=== PATIENT | female | born 1955 | race Caucasian/White ===

== ENCOUNTER 2016-09-08 17:51 | Day surgery (SDC) | payer BC ==
[~2016-09-08] VITALS: Ht 177.8 cm; Wt 92.0 kg
--- NOTE | 2016-09-08 17:55 | NUR ---
ADMISSION PATIENT ADMITTED TO ROOM 124 AT THIS TIME. PATIENT AMBULATORY. FAMILY AT BEDSIDE. A/OX3. PT DOES NOT APPEAR TO BE IN ACUTE DISTRESS. WILL CONTINUE TO MONITOR.
[2016-09-08] MEDS ORDERED: ONDANSETRON 4mg/2ml INJECTION IV PRN (18:15)
[2016-09-08] MEDS ORDERED: NITROGLYCERIN 0.4 MG SUBLINGUAL TABLET SL PRN (18:15)
[2016-09-08 18:22] VITALS: Ht 177.8 cm; Wt 92.0 kg
[2016-09-08 18:28] VITALS: BP 125/86; PULSE 67; RESP 18; TEMP 98; O2SAT 97
[2016-09-08] MEDS ORDERED: ASPI-914 PO (18:30)
[2016-09-08 18:39] LABS: BASOPHILS % (AUTO) 0.3 % (0-2); EOSINOPHILS # (AUTO) 0.1 T/MM3 (0-0.5); EOSINOPHILS % (AUTO) 1.2 % (0-4); HCT - HEMATOCRIT 41.8 % (36-46); HGB - HEMOGLOBIN 13.6 GM/DL (12-16); IMMATURE GRANULOCYTE # (AUTO) 0.01 T/MM3 (0.00-0.03); IMMATURE GRANULOCYTE % (AUTO) 0.1 % (0.0-0.5); LYMPHOCYTES # (AUTO) 2.4 T/MM3 (1-4.8); LYMPHOCYTES % (AUTO) 31.8 % (23-45); MEAN CORPUSCULAR HGB 29.8 UUG (26-34); MEAN CORPUSCULAR HGB CONC(MCHC 32.5 GM/DL (31-37); MEAN CORPUSCULAR VOLUME 91.7 UM3 (80-100); MEAN PLATELET VOLUME 11.1 UM3 (9.4-12.4); MONOCYTES # (AUTO) 0.5 T/MM3 (0-0.8); MONOCYTES % (AUTO) 6.9 % (0-9.0); NEUTROPHILS #(AUTO)-ABSOLUTE 4.5 T/MM3 (1.8-7.7); NEUTROPHILS % (AUTO) 59.7 % (33-66); RED BLOOD COUNT 4.56 M/MM3 (4.00-5.20); WBC - WHITE BLOOD COUNT 7.5 T/MM3 (4.5-11.0)
[2016-09-08 18:44] LABS: ALBUMIN 4.1 G/DL (3.5-5.0); ALBUMIN/GLOBULIN RATIO 1.3 RATIO (1.1-2.2); ALKALINE PHOSPHATASE 71 U/L (38-126); ALT (SGPT) 44 U/L (9-52); ANION GAP 13 MEQ/L (5-15); AST (SGOT) 21 U/L (14-36); BUN/CREATININE RATIO 21 RATIO (6-26); CALCIUM 9.5 MG/DL (8.4-10.2); CHLORIDE 108 MEQ/L (98-107); CO2 - CARBON DIOXIDE 25 MEQ/L (22-30); CREATININE 0.7 MG/DL (0.7-1.2); GLOMERULAR FILTRATION RATE 85; GLUCOSE 97 MG/DL (65-110); MAGNESIUM 2.1 MG/DL (1.6-2.3); SODIUM 146 MEQ/L (134-144); TOTAL PROTEIN 7.2 G/DL (6.3-8.2)
--- NOTE | 2016-09-08 23:26 | NUR ---
Chart Check 24 hour chart check completed
[2016-09-09] VITALS (12 sets, daily range): BP systolic 94–123; BP diastolic 52–70; PULSE 55–71; RESP 10–20; TEMP 97.8–98.4; O2SAT 93–99
[2016-09-09] MEDS: ACETAMINOPHEN 500 MG TABLET PO PRN ×2 (00:04→07:03)
--- NOTE | 2016-09-09 00:04 | NUR ---
tylenol pt denies pain at this time, but requesting tylenol prn for sleep. pt given tylenol 500mg - 2 tabs po per pt request. will continue to monitor.
--- NOTE | 2016-09-09 06:45 | NUR ---
SHIFT SUMMARY PT HAS SLEPT SOUNDLY THROUGHOUT THE NIGHT. DENIES CP/N/V/SOA. PT ANXIOUS LAST NIGHT ABOUT LAB DRAWS AFTER SEVERAL IV ATTEMPTS LAST NIGHT, BUT AGREED TO LET LAB DRAW BLOOD TO CHECK TROPONIN LEVELS. TROPONINS NEGATIVE. VSS, ON RA. IVL IN LEFT AC, FLUSHES WELL. PT TO HAVE HEART CATH PROCEDURE TODAY. PT GIVEN PRN TYLENOL LAST NIGHT, SEE PREVIOUS NOTE. PT UP AD MATTHEW IN ROOM, ADEQUATE OUTPUT. BED LOCKED AND LOW, CALL LIGHT WITHIN REACH. WILL CONTINUE TO MONITOR.
[2016-09-09] MEDS ORDERED: ASPIRIN *EC* 81mg TABLET PO SCH (09:00)
[2016-09-09] MEDS ORDERED: NORMAL SALINE 1,000 ML IV SCH (09:15)
--- NOTE | 2016-09-09 10:20 | NUR ---
CM CM VISITED PT AND FAMILY. CM EXPLAINED ROLE AND PROVIDED CONTACT INFORMATION. PT [place]N TO RETURN [place] [facility] [place] IS AWARE TO CONTACT CM IF NEEDS ARISE.
[2016-09-09] MEDS ORDERED: NITROGLYCERIN 50mg/10ml INJECTION IV ONE (11:21)
[2016-09-09] MEDS ORDERED: VERAPAMIL 5mg/2ml INJECTION IV ONE (11:21)
[2016-09-09] MEDS ORDERED: HEPARIN 1,000units in NS 500ml BAG IV ONE (11:22)
[2016-09-09] MEDS ORDERED: LIDOCAINE 1% (10mg/ml) 30ml SDV ONE (11:22)
[2016-09-09] MEDS ORDERED: IOHEXOL 350mg/ml 200ml BOTTLE ONE (12:32)
[2016-09-09] MEDS ORDERED: MIDAZOLAM 2mg/2ml INJECTION ONE (12:35)
[2016-09-09] MEDS ORDERED: FENTANYL 100mcg/2ml INJECTION ONE (12:35)
--- NOTE | 2016-09-09 12:42 | NUR ---
TO [employer] PT TRANSPORTED TO [facility] [facility] [facility] AT THIS TIME VIA CART AND ACCOMPANIED BY PETER LUGO RN. VITAL SIGNS STABLE UPON TRANSFER. PERSONAL BELONGINGS REMAIN IN ROOM. FAMILY PRESENT UPON TRANSFER. INFORMED CONSENT OBTAINED. WILL CONTINUE TO MONITOR CLOSELY.
--- NOTE | 2016-09-09 12:43 | ECHOF ---
DATE OF PROCEDURE September 08, [address] Phong Conroy This is a two-dimensional echo with spectral Doppler, color-flow and M-mode. It was obtained in a patient with chest pain. Left atrial dimension is normal. Left ventricle end-diastolic dimension is normal. Left ventricle wall thickness is normal. LV systolic function is normal with ejection fraction of 66%. Right atrium is normal. Right ventricle is normal. Aortic root dimension is normal. Mitral, aortic, tricuspid and pulmonary valves are morphologically normal with mild tricuspid and mild pulmonary insufficiency with normal estimated pulmonary artery systolic pressure of 21. There is no pericardial effusion. IMPRESSION 1. Normal LV systolic function with ejection fraction of 66%. 2. Mild tricuspid regurgitation with normal estimated pulmonary artery systolic pressure of 21. 3. Mild pulmonary insufficiency. MTDD
[2016-09-09] MEDS ORDERED: ONDANSETRON 4mg/2ml INJECTION ONE (12:47)
[2016-09-09] MEDS ORDERED: MAG-AL + SIM LIQUID 30 ML UDC PO PRN (13:15)
[2016-09-09] MEDS ORDERED: BISACODYL 5 MG E.C. TABLET PO PRN (13:15)
[2016-09-09] MEDS ORDERED: ATROPINE 1 MG/ML VIAL IV PRN (13:15)
[2016-09-09] MEDS ORDERED: MILK OF MAGNESIA 30 ML SUSP PO PRN (13:15)
[2016-09-09] MEDS ORDERED: LORAZEPAM 2 MG/ML INJECTION IV PRN (13:15)
[2016-09-09] MEDS ORDERED: LORAZEPAM 0.5 MG TABLET PO PRN (13:15)
[2016-09-09] MEDS ORDERED: METOCLOPRAMIDE 10mg/2ml INJECTION IV PRN (13:15)
[2016-09-09] MEDS ORDERED: ACETAMINOPHEN 325 MG TABLET PO PRN (13:15)
[2016-09-09] MEDS ORDERED: ONDANSETRON 4mg/2ml INJECTION IV PRN (13:15)
[2016-09-09] MEDS ORDERED: MORPHINE SULFATE 4 MG SYRINGE IV PRN ×2 (13:15)
[2016-09-09] MEDS ORDERED: BISACODYL 10 MG SUPPOSITORY RECTALLY PRN (13:15)
[2016-09-09] MEDS ORDERED: PROMETHAZINE 25 MG INJECTION IV PRN (13:15)
[2016-09-09] MEDS ORDERED: NITROGLYCERIN 0.4 MG SUBLINGUAL TABLET SL PRN (13:15)
[2016-09-09] MEDS ORDERED: HYDROCODONE/APAP 5 mg/325 mg TABLET PO PRN (13:15)
--- NOTE | 2016-09-09 13:24 | NUR ---
RETURN PT RETURNED TO ROOM 124 AT THIS TIME VIA CART AND ACCOMPANIED BY STAFF. PT TRANSFERRED SELF FROM CART TO BED. VITAL SIGNS STABLE ON ROOM AIR. PT'S FAMILY PRESENT UPON RETURN. BED ALARM ON. HOB ELEVATED. CALL LIGHT IN REACH. WILL CONTINUE TO MONITOR.
--- NOTE | 2016-09-09 16:13 | NUR ---
DISCHARGE PT DISCHARGED TO HOME AT THIS TIME IN THE COMPANY OF AN ADULT. PT TRANSPORTED TO THE FRONT ENTRANCE BY WHEELCHAIR AND STAFF. DISCHARGE INSTRUCTIONS INCLUDING DIET, ACTIVITY, MEDICATIONS, FOLLOW UP APPOINTMENT, REPORTABLE S/S, [facility] HEART CATH INSTRUCTIONS AND ACTIVITY RESTRICTIONS GIVEN AND REVIEWED WITH PT. PT VERBALIZED UNDERSTANDING OF THESE INSTRUCTIONS AND HAD NO FURTHER QUESTIONS. IVL DISCONTINUED. ARMBAND REMOVED. NO S/S OF BLEEDING FROM HEART CATH ACCESS SITE UPON DISCHARGE.
--- NOTE | 2016-09-09 16:37 | DSPDOC ---
General Date Date DATE: 09/09/16 TIME: 16:29 Attending Physician Srinivasan Elena MD Admitting Physician Srinivasan Elena MD Consulting Physician Admitting Diagnosis CHEST PAIN R/O IA Discharge Diagnosis chest pain Procedures Left Heart cath with no intervention Laboratory Laboratory Tests Test 09/08/16 18:26 09/08/16 22:44 09/09/16 02:15 White Blood Count 7.5T/MM3 Red Blood Count 4.56M/MM3 Hemoglobin 13.6GM/DL Hematocrit 41.8% Mean Corpuscular Volume 91.7UM3 Mean Corpuscular Hemoglobin 29.8UUG Mean Corpuscular Hemoglobin Concent 32.5GM/DL RDW Standard Deviation 41.9FL Platelet Count 234T/MM3 Mean Platelet Volume 11.1UM3 Immature Granulocyte % (Auto) 0.1% Neutrophils (%) (Auto) 59.7% Lymphocytes (%) (Auto) 31.8% Monocytes (%) (Auto) 6.9% Eosinophils (%) (Auto) 1.2% Basophils (%) (Auto) 0.3% Absolute Immature Granulocyte (auto 0.01T/MM3 Absolute Neutrophils (auto) 4.5T/MM3 Absolute Lymphocytes (auto) 2.4T/MM3 Absolute Monocytes (auto) 0.5T/MM3 Absolute Eosinophils (auto) 0.1T/MM3 Absolute Basophils (auto) 0.0T/MM3 D-Dimer < 150NG/ML Turbidity < 20 Sodium Level 146MEQ/L Potassium Level 4.0MEQ/L Chloride Level 108MEQ/L Carbon Dioxide Level 25MEQ/L Anion Gap 13MEQ/L Blood Urea Nitrogen 15.0MG/DL Creatinine 0.7MG/DL Glomerular Filtration Rate Calc 85 BUN/Creatinine Ratio 21RATIO Glucose Level 97MG/DL Calculated Osmolality 282MOSM/KG Calcium Level 9.5MG/DL Magnesium Level 2.1MG/DL Total Bilirubin 0.90MG/DL Icterus Index < 2 Aspartate Amino Transf (AST/SGOT) 21U/L Alanine Aminotransferase (ALT/SGPT) 44U/L Alkaline Phosphatase 71U/L Troponin I < 0.012ng/ml < 0.012ng/ml < 0.012ng/ml Total Protein 7.2G/DL Albumin 4.1G/DL Globulin 3.1G/DL Albumin/Globulin Ratio 1.3RATIO Thyroid Stimulating Hormone (TSH) 1.65MIU/L Chemistry Specimen Hemolysis < 15 < 15 < 15 Laboratory Tests Test 09/08/16 18:26 09/08/16 22:44 09/09/16 02:15 White Blood Count 7.5T/MM3 (4.5-11.0) Red Blood Count 4.56M/MM3 (4.00-5.20) Hemoglobin 13.6GM/DL (12-16) Hematocrit 41.8% (36-46) Mean Corpuscular Volume 91.7UM3 (80-100) Mean Corpuscular Hemoglobin 29.8UUG (26-34) Mean Corpuscular Hemoglobin Concent 32.5GM/DL (31-37) RDW Standard Deviation 41.9FL (36.9-50.2) Platelet Count 234T/MM3 (130-400) Mean Platelet Volume 11.1UM3 (9.4-12.4) Immature Granulocyte % (Auto) 0.1% (0.0-0.5) Neutrophils (%) (Auto) 59.7% (33-66) Lymphocytes (%) (Auto) 31.8% (23-45) Monocytes (%) (Auto) 6.9% (0-9.0) Eosinophils (%) (Auto) 1.2% (0-4) Basophils (%) (Auto) 0.3% (0-2) Absolute Immature Granulocyte (auto 0.01T/MM3 (0.00-0.03) Absolute Neutrophils (auto) 4.5T/MM3 (1.8-7.7) Absolute Lymphocytes (auto) 2.4T/MM3 (1-4.8) Absolute Monocytes (auto) 0.5T/MM3 (0-0.8) Absolute Eosinophils (auto) 0.1T/MM3 (0-0.5) Absolute Basophils (auto) 0.0T/MM3 (0-0.2) D-Dimer < 150NG/ML (0-230) Turbidity < 20 (0-20) Sodium Level 146MEQ/L (134-144) Potassium Level 4.0MEQ/L (3.6-5) Chloride Level 108MEQ/L (98-107) Carbon Dioxide Level 25MEQ/L (22-30) Anion Gap 13MEQ/L (5-15) Blood Urea Nitrogen 15.0MG/DL (7-17) Creatinine 0.7MG/DL (0.7-1.2) Glomerular Filtration Rate Calc 85 BUN/Creatinine Ratio 21RATIO (6-26) Glucose Level 97MG/DL (65-110) Calculated Osmolality 282MOSM/KG (261-280) Calcium Level 9.5MG/DL (8.4-10.2) Magnesium Level 2.1MG/DL (1.6-2.3) Total Bilirubin 0.90MG/DL (0.20-1.30) Icterus Index < 2 (0-7) Aspartate Amino Transf (AST/SGOT) 21U/L (14-36) Alanine Aminotransferase (ALT/SGPT) 44U/L (9-52) Alkaline Phosphatase 71U/L (38-126) Troponin I < 0.012ng/ml (0-0.12) < 0.012ng/ml (0-0.12) < 0.012ng/ml (0-0.12) Total Protein 7.2G/DL (6.3-8.2) Albumin 4.1G/DL (3.5-5.0) Globulin 3.1G/DL (2.4-3.6) Albumin/Globulin Ratio 1.3RATIO (1.1-2.2) Thyroid Stimulating Hormone (TSH) 1.65MIU/L (0.47-4.68) Chemistry Specimen Hemolysis < 15 (0-25) < 15 (0-25) < 15 (0-25) Radiology [place], [place] [address] Name: YEIMI WREN Unit #: [id number] Draft Page 1 of 1 ECHOCARDIOGRAM Report #: [id number] Dictated By: SRINIVASAN ELENA MD 09/09/16 0846 Transcribed By: HIPOLITO GONZALEZ 09/09/16 1241 cc: DEREK ALMARAZ DO~ [address] [place], [place] [address] [phone] Dictated By: SRINIVASAN ELENA MD 09/09/16 0846 Transcribed By: HIPOLITO GONZALEZ 09/09/16 1241 cc: DEREK ALMARAZ DO~ DATE OF PROCEDURE September 08, [address] Derek Almaraz This is a two-dimensional echo with spectral Doppler, color-flow and M-mode. It was obtained in a patient with chest pain. Left atrial dimension is normal. Left ventricle end-diastolic dimension is normal. Left ventricle wall thickness is normal. LV systolic function is normal with ejection fraction of 66%. Right atrium is normal. Right ventricle is normal. Aortic root dimension is normal. Mitral, aortic, tricuspid and pulmonary valves are morphologically normal with mild tricuspid and mild pulmonary insufficiency with normal estimated pulmonary artery systolic pressure of 21. There is no pericardial effusion. IMPRESSION 1. Normal LV systolic function with ejection fraction of 66%. 2. Mild tricuspid regurgitation with normal estimated pulmonary artery systolic pressure of 21. 3. Mild pulmonary insufficiency. History of Present Illness Yeimi is a 61 year old female who is new to Dr. Elena who was referred from Dr. Almaraz's office for unstable angina. She saw Zulema DAVIS in the clinic and was admitted for chest pain, rule out IA. Objective Vital Signs Vital signs Vital Signs 09/09/16 09/09/16 09/09/16 09/09/16 06:58 07:01 13:30 13:45 Temp 97.8 97.8 Pulse 63 63 67 64 Resp 16 16 17 10 B/P 118/69 103/64 97/55 Pulse Ox 97 94 93 O2 Delivery Room Air Room Air Nasal Cannula O2 Flow Rate 2.00 09/09/16 09/09/16 09/09/16 09/09/16 14:00 14:15 14:45 15:00 Pulse 58 69 55 62 Resp 14 20 15 19 B/P 94/52 95/54 98/55 106/55 Pulse Ox 95 96 99 95 O2 Delivery Room Air Nasal Cannula Room Air Room Air O2 Flow Rate 2.00 09/09/16 09/09/16 09/09/16 15:15 15:30 15:45 Pulse 66 71 69 Resp 20 20 20 B/P 101/54 97/66 100/70 Pulse Ox 95 97 96 O2 Delivery Room Air Room Air Room Air Telemetry Rhythm: Sinus Rhythm Height (Feet): 5 Height (Inches): 10.00 Weight (Kilograms): 92.000 General Alert, Orientated x 3, Cooperative ENMT (Brief) mucosa moist Neck (Brief) NOT FOUND: JVD, carotid bruits Respiratory (Brief) clear all cano, equal bilaterally, NOT FOUND: rales, wheezes Cardiovascular (Brief) regular rate, regular rhythm, NOT FOUND: click, gallop, murmur, pedal edema, rub Abdomen (Brief) BS normo active x4, soft, NOT FOUND: tender Integumentary (Brief) dry, pink, warm Psychiatric (Brief) alert, attentive, oriented Laboratory Laboratory Laboratory Tests Test 09/08/16 18:26 09/08/16 22:44 09/09/16 02:15 White Blood Count 7.5T/MM3 Red Blood Count 4.56M/MM3 Hemoglobin 13.6GM/DL Hematocrit 41.8% Mean Corpuscular Volume 91.7UM3 Mean Corpuscular Hemoglobin 29.8UUG Mean Corpuscular Hemoglobin Concent 32.5GM/DL RDW Standard Deviation 41.9FL Platelet Count 234T/MM3 Mean Platelet Volume 11.1UM3 Immature Granulocyte % (Auto) 0.1% Neutrophils (%) (Auto) 59.7% Lymphocytes (%) (Auto) 31.8% Monocytes (%) (Auto) 6.9% Eosinophils (%) (Auto) 1.2% Basophils (%) (Auto) 0.3% Absolute Immature Granulocyte (auto 0.01T/MM3 Absolute Neutrophils (auto) 4.5T/MM3 Absolute Lymphocytes (auto) 2.4T/MM3 Absolute Monocytes (auto) 0.5T/MM3 Absolute Eosinophils (auto) 0.1T/MM3 Absolute Basophils (auto) 0.0T/MM3 D-Dimer < 150NG/ML Turbidity < 20 Sodium Level 146MEQ/L Potassium Level 4.0MEQ/L Chloride Level 108MEQ/L Carbon Dioxide Level 25MEQ/L Anion Gap 13MEQ/L Blood Urea Nitrogen 15.0MG/DL Creatinine 0.7MG/DL Glomerular Filtration Rate Calc 85 BUN/Creatinine Ratio 21RATIO Glucose Level 97MG/DL Calculated Osmolality 282MOSM/KG Calcium Level 9.5MG/DL Magnesium Level 2.1MG/DL Total Bilirubin 0.90MG/DL Icterus Index < 2 Aspartate Amino Transf (AST/SGOT) 21U/L Alanine Aminotransferase (ALT/SGPT) 44U/L Alkaline Phosphatase 71U/L Troponin I < 0.012ng/ml < 0.012ng/ml < 0.012ng/ml Total Protein 7.2G/DL Albumin 4.1G/DL Globulin 3.1G/DL Albumin/Globulin Ratio 1.3RATIO Thyroid Stimulating Hormone (TSH) 1.65MIU/L Chemistry Specimen Hemolysis < 15 < 15 < 15 Laboratory Tests 09/08/16 18:26 Laboratory Tests 09/08/16 18:26 EKG SR, 1st degree AV block Medications Current Medications Acetaminophen (Tylenol Extra Strength) 500-1,000 MG Q6H PRN. Q6H PRN PO PAIN Last administered on 09/09/16 07:03; Start 09/08/16 at 18:15 Aspirin 81 mg 81 mg DAILY PO Last administered on 09/09/16 07:03; Start at 09:00 Sodium Chloride (Normal Saline IV) 1,000 ml @ 75 mls/hr [id number] IV Last administered on 09/09/16 09:11; Start 09/09/16 at 09:15; Stop 09/09/16 at 22:34 Verapamil HCl (Verapamil) 5 mg STK-MED ONCE IV ; Start 09/09/16 at 11:21; Stop at 11:22; Status DC Nitroglycerin (Nitroglycerin) 50 mg STK-MED ONCE IV ; Start 09/09/16 at 11:21; Stop 09/09/16 at 11:22; Status DC Heparin Sodium (Porcine) (Heparin Bolus) 10,000 unit STK-MED ONCE IV ; Start 09/09/16 at 11:21; Stop 09/09/16 at 11:22; Status DC Heparin Sodium/ Sodium Chloride (HEPARIN 1,000units in NS 500ml) 1,000 unit STK- MED ONCE IV ; Start 09/09/16 at 11:22; Stop 09/09/16 at 11:23; Status DC Lidocaine HCl (Xylocaine 1%) 300 mg STK-MED ONCE .ROUTE ; Start 09/09/16 at 11:22 ; Stop 09/09/16 at 11:23; Status DC Iohexol (Omnipaque) 1 bottle STK-MED ONCE .ROUTE ; Start 09/09/16 at 12:32; Stop 09/09/16 at 12:33; Status DC Fentanyl (Fentanyl) 100 mcg STK-MED ONCE .ROUTE ; Start 09/09/16 at 12:35; Stop 09/09/16 at 12:36; Status DC Midazolam HCl (Versed) 2 mg STK-MED ONCE .ROUTE ; Start 09/09/16 at 12:35; Stop 09/09/16 at 12:36; Status DC Atropine Sulfate (ATROPINE 1mg INJ) 0.5 mg Q5M PRN IV pulse < 40 bmp AND symptomatic; Start 09/09/16 at 13:15 Acetaminophen (Tylenol Regular Strength) 325-650 mg Q5H PRN PO PAIN; Start 09/09 at 13:15 Morphine Sulfate (Morphine) 2-4 mg Q5MIN PRN IV ANGINA; Start 09/09/16 at 13:15 Acetaminophen/ Hydrocodone Bitart (Fenwick 5/325) 1-2 tabs Q5H PRN PO PAIN; Start 09/09/16 at 13:15 Promethazine HCl (Phenergan) 12.5-25 mg Q6H PRN IV NAUSEA &/OR VOMITING; Start 09/09/16 at 13:15 Nitroglycerin (Nitrostat) 0.4 mg Q5MIN PRN SL ANGINA; Start 09/09/16 at 13:15 Magnesium Hydroxide (Mom) 30 ml DAILY PRN PO CONSTIPATION; Start 09/09/16 at 13: 15 Bisacodyl (Dulcolax) 5-10 mg DAILY PRN PO CONSTIPATION; Start 09/09/16 at 13:15 Al Hydroxide/Mg Hydroxide (Maalox) 30 ml Q3H PRN PO INDIGESTION; Start 09/09/16 at 13:15 Lorazepam (Ativan) 0.5-1 mg Q4H PRN IV ANXIETY; Start 09/09/16 at 13:15 Metoclopramide HCl (REGLAN Inj) 5-10 mg Q6H PRN IV NAUSEA &/OR VOMITING; Start 09/09/16 at 13:15 Ondansetron HCl (Zofran) 4 mg Q6H PRN IV NAUSEA &/OR VOMITING; Start 09/09/16 at 13:15 Hospital Course She underwent left heart cath without intervention. Problems: (1) Chest pain, rule out acute myocardial infarction Status: Acute Assessment & Plan: Trend serial troponin levels. Obtain echo Code Status Full Code Home Meds Reported Medications Aspirin *EC* (Low Dose Aspirin EC) 81 Mg Tablet., 1 TAB PO DAILY, TAB 09/08/16 Discharge Disposition Discharged to home in good and stable condition in the care of herself Copies To 1: DEREK ALMARAZ AMY M APRN September 09, 2016 16:33
--- NOTE | 2016-09-09 20:01 | CVPROF ---
CARDIAC CATHETERIZATION DATE OF PROCEDURE September 09, 2016 The patient is a pleasant 61-year-old lady who was admitted with unstable angina and was referred for further evaluation by cardiac catheterization and possible intervention. Informed consent was obtained after explaining the procedure and the potential risks to the patient who agreed to proceed with the procedure. PROCEDURE 1. Left heart catheterization. 2. Coronary angiography. 3. Left ventriculography. TECHNIQUE She was prepped and draped in the usual sterile techniques. Conscious sedation was performed using Versed and fentanyl. 1% lidocaine was used for local anesthesia. Using modified Seldinger technique, arterial access was obtained into the right radial artery with placement of a 6-English arterial sheath. 3000 units of heparin, 300 mcg of nitroglycerin, and 2.5 mg of verapamil were given through the arterial sheath. LEFT VENTRICULOGRAPHY Left ventriculography in single-plane JACKSON shallow projection showed normal LV systolic function with ejection fraction of about 70% with no mitral regurgitation or gradient across the aortic valve. LVEDP was about 8. CORONARY ANGIOGRAPHY Left main, left anterior descending and diagonals, left circumflex and marginals, and right coronary artery had minor irregularities with no hemodynamically significant lesions. Mid LAD had a small segment of intramyocardial bridging. The patient tolerated the procedure well with no complications. IMPRESSION 1. Minor coronary irregularities with no significant lesions. 2. Normal LV systolic function with ejection fraction of 70%. PLAN Medical management. BRIANAD
[2016-09-10 02:29] LABS: LDL CHOLESTEROL,CALCULATED 135.2 (66-159); RISK FACTOR 4.5 RATIO (0-4.0); VLDL CHOLESTEROL 57.8 MG/DL (0-28)
--- OUTSIDE RECORDS SUMMARY | 2016-09-10 14:06 | XMS REPORT | Continuity of Care Document ---
Author Author [facility] Organization [facility] Address Unknown Phone Unavailable Support Name Relationship Address Phone TIFFANY SANDOVAL MD Caregiver [address] [place] [address] [address] [place] [address] Unavailable TIFFANY SANDOVAL MD Caregiver [address] [place] [address] [place] [address] Unavailable DEREK ALMARAZ DO Caregiver [address] [place] [address] Unavailable [place] [address] Insurance Providers Guarantor Yeimi Baldwin Address [address] [place] [address] Email DENIED 09-08-16 Payer [facility] Policy Number [id number] Subscriber's Name DennyMike Kay Relationship 01 Spouse Group Number [id number] Advance Directives Directive Response Recorded Date/Time Ordered Resuscitation Status Full Code 09/08/16 6:13pm DPOA for Healthcare Only No 09/08/16 6:22pm Living Will No 09/08/16 6:22pm Advance Directive Consult Information Given 09/09/16 10:19am Problems Active Problems Medical Problem Onset Date Status Chest pain, rule out acute myocardial infarction Unknown Acute Medications Current Home Medications Medication Dose Units Route Directions Days Qty Instructions Start Date Aspirin (Low Dose Aspirin Ec) 81 Mg Tablet. 1 Tab Oral Daily Social History Social History Problem Response Recorded Date/Time Onset Date Status Reason for Hospitalization Heart catheterization 09/09/2016 2:34pm Not Applicable Not Applicable Has the pt used tobacco in the last 12 months No 09/08/2016 6:25pm Not Applicable Not Applicable Query Response Start Date Stop Date Smoking Status Never smoker Hospital Discharge Instructions Instructions: Care Instructions: I was in the hospital because (patient own words): PATIENT STATES, "FOR A HEART CATH" Discharge Diet: Resume heart healthy diet Discharge Activity: Limit activity for 2 days. No lifting more than 10 pounds, no pushing or pulling for 1 week. Follow Up Appointments: Follow up with Dr. Sandoval on: 09/30/16 at 10:20am. Pending Lab / Results: No Pending Lab Patient Instructions: Do not drive, operate machinery or drink alcohol for 2 days. Expected Signs/Symptoms: Bruising and tenderness at the site. Notify Physician If: Site is bleeding, abnormal drainage, increased pain or fever of 101.5 or more. During Business Hours:: Call Dr. Sandoval's office at [phone]. After Business Hours:: Please call [phone] and have the carbon blocks press operator page the physician. Pain Management/Treatment: Over the counter pain medication if needed. Pain Scale Utilized to Educate Patient: 0-10 Pain Scale Wound/Incision Care: Keep site clean and dry. No tub baths or swimming for 1 week. You may shower. Condition at time of discharge: Good Plan of Care Discharge Date 09/09/16 4:13pm Disposition 01 DISCHARGED HOME, SELF-CARE Instructions/Education Provided [facility] Heart Cath Trans Rad Prescriptions See Medication Section Care Plan and Goals See Discharge Instructions Section Functional Status Query Response Date Recorded Mobility Status Ambulatory September 08, 2016 6:30pm Assistive Devices None September 08, 2016 6:30pm Activity Limitations None September 08, 2016 6:30pm Feeding Ability Independent September 08, 2016 6:30pm Toileting Ability Independent September 08, 2016 6:30pm Grooming Ability Independent September 08, 2016 6:30pm Dressing Ability Independent September 08, 2016 6:30pm Driving Ability Independent September 08, 2016 6:30pm Housework Ability Independent September 08, 2016 6:30pm Meal Preparation Ability Independent September 08, 2016 6:30pm Stair Climbing Ability Independent September 08, 2016 6:30pm Ability to complete ADL's impeded by No change September 08, 2016 6:30pm Cognitive/Perceptual Impairments Impaired vision September 08, 2016 6:30pm Visual Assistive Devices Contacts September 08, 2016 6:30pm Preferred Method of Learning Hands on September 08, 2016 6:30pm Allergies, Adverse Reactions, Alerts Allergen Type Severity Reaction Status Last Updated NKDA Allergy Unknown Active 09/08/16 Immunizations Query Response on File Recorded Date/Time Hx Influenza Vaccination No 09/08/16 6:25pm Hx Pneumococcal Vaccination Y UNKNOWN DATE 09/08/16 6:25pm Hx Influenza Vaccination No 09/08/16 6:25pm Vital Signs Acute Vital Signs Vital Response Date/Time Temperature (Fahrenheit) 97.8 deg F (96.8 - 99.1) 09/09/2016 1:30pm Temperature (Calculated Celsius) 36.62473 degrees C (36.0 - 37.3) 09/09/2016 1:30pm Temperature Source Oral 09/09/2016 1:30pm Pulse Rate (adult) 69 bpm (60 - 100) 09/09/2016 3:45pm Respiratory Rate 20 breaths/min (10 - 20) 09/09/2016 3:45pm O2 Sat by Pulse Oximetry 96 % (90 - 100) 09/09/2016 3:45pm Oxygen Delivery Method Room Air 09/09/2016 3:45pm Oxygen Delivery Method Room Air 09/09/2016 6:58am Oxygen Flow Rate 2.00 L/min 09/09/2016 2:15pm Blood Pressure 100/70 mm Hg 09/09/2016 3:45pm Blood Pressure Source Automatic Cuff 09/09/2016 3:45pm Height (Feet) 5 feet 09/09/2016 4:37pm Height (Inches) 10.00 inches 09/09/2016 4:37pm Weight (Kilograms) 92.000 kg 09/09/2016 7:03am Body Mass Index (BMI) 29.1 09/08/2016 6:22pm Results Laboratory Results Test Name Result Units Flags Reference Collection Date/Time Result Date/ Time Comments White Blood Count 7.5 T/MM3 4.5-11.0 09/08/2016 6:26pm 09/08/2016 6: 39pm Red Blood Count 4.56 M/MM3 4.00-5.20 09/08/2016 6:26pm 09/08/2016 6: 39pm Hemoglobin 13.6 GM/DL 12-16 09/08/2016 6:26pm 09/08/2016 6:39pm Hematocrit 41.8 % 36-46 09/08/2016 6:26pm 09/08/2016 6:39pm Mean Corpuscular Volume 91.7 UM3 80-100 09/08/2016 6:26pm 09/08/2016 6: 39pm Mean Corpuscular Hemoglobin 29.8 UUG 26-34 09/08/2016 6:26pm 2016 6:39pm Mean Corpuscular Hemoglobin Concent 32.5 GM/DL 31-37 09/08/2016 6:09/08/2016 6:39pm RDW Standard Deviation 41.9 FL 36.9-50.2 09/08/2016 6:09/08/2016 6 :39pm Platelet Count 234 T/MM3 130-400 09/08/2016 6:09/08/2016 6:39pm Mean Platelet Volume 11.1 UM3 9.4-12.4 09/08/2016 6:09/08/2016 6: 39pm Neutrophils (%) (Auto) 59.7 % 33-66 09/08/2016 6:09/08/2016 6: 39pm Lymphocytes (%) (Auto) 31.8 % 23-45 09/08/2016 6:09/08/2016 6: 39pm Monocytes (%) (Auto) 6.9 % 0-9.0 09/08/2016 6:09/08/2016 6:39pm Eosinophils (%) (Auto) 1.2 % 0-4 09/08/2016 6:09/08/2016 6:39pm Basophils (%) (Auto) 0.3 % 0-2 09/08/2016 6:09/08/2016 6:39pm Immature Granulocyte % (Auto) 0.1 % 0.0-0.5 09/08/2016 6:2016 6:39pm Absolute Neutrophils (auto) 4.5 T/MM3 1.8-7.7 09/08/2016 6:2016 6:39pm Absolute Lymphocytes (auto) 2.4 T/MM3 1-4.8 09/08/2016 6:2016 6:39pm Absolute Monocytes (auto) 0.5 T/MM3 0-0.8 09/08/2016 6:09/08/2016 6:39pm Absolute Eosinophils (auto) 0.1 T/MM3 0-0.5 09/08/2016 6:2016 6:39pm Absolute Basophils (auto) 0.0 T/MM3 0-0.2 09/08/2016 6:09/08/2016 6:39pm Absolute Immature Granulocyte (auto 0.01 T/MM3 0.00-0.03 09/08/2016 6: 26pm 09/08/2016 6:39pm D-Dimer < 150 NG/ML 0-230 09/08/2016 6:pm 09/08/2016 6:49pm <230 NG/ ML D-DU=PRESUMPTIVE NEGATIVE FOR PE OR DVT >230 NG/ML D-DU=ADDITIONAL EVAL FOR PE OR DVT RECOMMENDED Icterus Index < 2 0-7 09/08/2016 6:26pm 09/08/2016 6:57pm Chemistry Specimen Hemolysis < 15 0-25 09/09/2016 2:15am 09/09/2016 2 :45am 0-25: Specimen Exhibited No Hemolysis. Turbidity < 20 0-20 09/08/2016 6:pm 09/08/2016 6:57pm Sodium Level 146 MEQ/L H 134-144 09/08/2016 6:26pm 09/08/2016 6:44pm Potassium Level 4.0 MEQ/L 3.6-5 09/08/2016 6:pm 09/08/2016 6:44pm Chloride Level 108 MEQ/L H 98-107 09/08/2016 6:pm 09/08/2016 6:44pm Carbon Dioxide Level 25 MEQ/L 22-30 09/08/2016 6:pm 09/08/2016 6: 44pm Anion Gap 13 MEQ/L 5-09/08/2016 6:pm 09/08/2016 6:44pm Blood Urea Nitrogen 15.0 MG/DL 7-09/08/2016 6:pm 09/08/2016 6: 44pm Creatinine 0.7 MG/DL 0.7-1.2 09/08/2016 6:pm 09/08/2016 6:44pm BUN/Creatinine Ratio 21 RATIO 6-09/08/2016 6:pm 09/08/2016 6:44pm Glomerular Filtration Rate Calc 85 09/08/2016 6:09/08/2016 6: 44pm Glucose Level 97 MG/DL 65-110 09/08/2016 6:pm 09/08/2016 6:44pm Calculated Osmolality 282 MOSM/KG H 261-280 09/08/2016 6:2016 6:44pm Calcium Level 9.5 MG/DL 8.4-10.2 09/08/2016 6:26pm 09/08/2016 6:44pm Total Bilirubin 0.90 MG/DL 0.20-1.30 09/08/2016 6:26pm 09/08/2016 6: 44pm Alkaline Phosphatase 71 U/L 38-126 09/08/2016 6:pm 09/08/2016 6:44pm Total Protein 7.2 G/DL 6.3-8.2 09/08/2016 6:pm 09/08/2016 6:44pm Albumin 4.1 G/DL 3.5-5.0 09/08/2016 6:26pm 09/08/2016 6:44pm Globulin 3.1 G/DL 2.4-3.6 09/08/2016 6:pm 09/08/2016 6:44pm Albumin/Globulin Ratio 1.3 RATIO 1.1-2.2 09/08/2016 6:26pm 09/08/2016 6 :44pm Aspartate Amino Transf (AST/SGOT) 21 U/L 14-36 09/08/2016 6:pm 2016 6:44pm Alanine Aminotransferase (ALT/SGPT) 44 U/L 9-52 09/08/2016 6:26pm 09/08 6:44pm Troponin I < 0.012 ng/ml 0-0.12 09/09/2016 2:15am 09/09/2016 2:45am Troponin values with a difference of 55% increase from orginal troponin value represent a true biological DELTA value. (%increase Calc=Orginal Troponin value, divided by subsequent Troponin value, multiplied by 100) Magnesium Level 2.1 MG/DL 1.6-2.3 09/08/2016 6:pm 09/08/2016 6:44pm Thyroid Stimulating Hormone (TSH) 1.65 MIU/L 0.47-4.68 09/08/2016 6: pm 09/08/2016 7:14pm Procedures Procedure Status Date Provider(s) Breast tomosynthesis bi Completed 07/14/16 [id number]"SCREENING MAMMOGRAPHY, PRODUCING DIRECT DIGITAL IMAGE Completed Encounters Encounter Location Arrival/Admit Date Discharge/Depart Date Attending Provider Discharged Inpatient (obs) [facility] 09/08/16 5:51pm 09/09/16 4: 13pm TIFFANY SANDOVAL MD Registered Clinic [facility] 07/14/16 10:22am BEULAH DAO
--- OUTSIDE RECORDS SUMMARY | 2016-09-10 14:06 | XMS REPORT | Continuity of Care Document ---
Author Author [facility] Organization [facility] Address Unknown Phone Unavailable Support Name Relationship Address Phone TIFFANY SANDOVAL MD Caregiver [address] [place] [address] [address] [place] [address] Unavailable TIFFANY SANDOVAL MD Caregiver [address] [place] [address] [place] [address] Unavailable DEREK ALMARAZ DO Caregiver [address] [place] [address] Unavailable JAEL MARSH [place] [address] Insurance Providers Guarantor Yeimi Baldwin Address [address] [place] [address] Email DENIED 09-08-16 Payer [facility] Policy Number [id number] Subscriber's Name DennyMike Kay Relationship 01 Spouse Group Number [id number] Advance Directives Directive Response Recorded Date/Time Ordered [...] Business Hours:: Call Dr. Sandoval's office at [phone]. After Business Hours:: Please call [phone] and have the cutting machine operator page the physician. Pain Management/Treatment: Over the counter pain medication if needed. Pain Scale Utilized to Educate Patient: 0-10 Pain Scale Wound/Incision Care: Keep site clean and dry. No tub baths or swimming for 1 week. You may shower. Condition at time of discharge: Good Plan of Care Discharge Date 09/09/16 4:13pm Instructions/Education Provided [facility] Heart Cath Trans Rad Prescriptions See Medication Section Functional Status Query Response Date Recorded [...] - 99.1) 09/09/2016 1:30pm Temperature (Calculated Celsius) 36.49760 degrees C (36.0 - 37.3) 09/09/2016 1:30pm [...] Granulocyte (auto 0.01 T/MM3 0.00-0.03 09/08/2016 6: 09/08/2016 6:39pm D-Dimer < 150 NG/ML 0-230 09/08/2016 6:pm 09/08/2016 6:49pm <230 NG/ ML D-DU=PRESUMPTIVE NEGATIVE FOR PE OR DVT >230 NG/ML D-DU=ADDITIONAL EVAL FOR PE OR DVT RECOMMENDED Icterus Index < 2 0-7 09/08/2016 6:26pm 09/08/2016 6:57pm Chemistry Specimen Hemolysis < 15 0-25 09/09/2016 2:15am 09/09/2016 2 :45am 0-25: Specimen Exhibited No Hemolysis. Turbidity < 20 0-20 09/08/2016 6:26pm 09/08/2016 6:57pm Sodium Level 146 MEQ/L H 134-144 09/08/2016 6:pm 09/08/2016 6:44pm Potassium Level 4.0 MEQ/L 3.6-5 09/08/2016 6:26pm 09/08/2016 6:44pm Chloride Level 108 MEQ/L H 98-107 09/08/2016 6:pm 09/08/2016 6:44pm Carbon Dioxide Level 25 MEQ/L 22-30 09/08/2016 6:pm 09/08/2016 6: 44pm Anion Gap 13 MEQ/L 5-09/08/2016 6:pm 09/08/2016 6:44pm Blood Urea Nitrogen 15.0 MG/DL 7-09/08/2016 6:pm 09/08/2016 6: 44pm Creatinine 0.7 MG/DL 0.7-1.2 09/08/2016 6:pm 09/08/2016 6:44pm BUN/Creatinine Ratio 21 RATIO 609/08/2016 6:pm 09/08/2016 6:44pm Glomerular Filtration Rate Calc 85 09/08/2016 6:09/08/2016 6: 44pm Glucose Level 97 MG/DL 65-110 09/08/2016 6:pm 09/08/2016 6:44pm Calculated Osmolality 282 MOSM/KG H 261-280 09/08/2016 6:pm 2016 6:44pm Calcium Level 9.5 MG/DL 8.4-10.2 09/08/2016 6:09/08/2016 6:44pm Total Bilirubin 0.90 MG/DL 0.20-1.30 09/08/2016 6:pm 09/08/2016 6: 44pm Alkaline Phosphatase 71 U/L 38-126 09/08/2016 6:pm 09/08/2016 6:44pm Total Protein 7.2 G/DL 6.3-8.2 09/08/2016 6:pm 09/08/2016 6:44pm Albumin 4.1 G/DL 3.5-5.0 09/08/2016 6:pm 09/08/2016 6:44pm Globulin 3.1 G/DL 2.4-3.6 09/08/2016 6:pm 09/08/2016 6:44pm Albumin/Globulin Ratio 1.3 RATIO 1.1-2.2 09/08/2016 6:pm 09/08/2016 6 :44pm Aspartate Amino Transf (AST/SGOT) 21 U/L 14-36 09/08/2016 6:pm 2016 6:44pm Alanine Aminotransferase (ALT/SGPT) 44 U/L 9-52 09/08/2016 6:pm 09/08 6:44pm Cholesterol Level 248 MG/DL H 132-199 09/08/2016 6:pm 09/10/2016 2: 29am Triglycerides Level 289 MG/DL H 35-135 09/08/2016 6:pm 09/10/2016 2: 29am HDL Cholesterol Direct 55 MG/DL 40-60 09/08/2016 6:09/10/2016 2: 29am LDL Cholesterol, Calculated 135.2 66-159 09/08/2016 6:2016 2:29am VLDL Cholesterol 57.8 MG/DL H 0-28 09/08/2016 6:09/10/2016 2:29am Cholesterol/HDL Ratio 4.5 RATIO H 0-4.0 09/08/2016 6:09/10/2016 2: 29am Troponin I < 0.012 ng/ml 0-0.12 09/09/2016 2:15am 09/09/2016 2:45am Troponin values with a difference of 55% increase from orginal troponin value represent a true biological DELTA value. (%increase Calc=Orginal Troponin value, divided by subsequent Troponin value, multiplied by 100) Magnesium Level 2.1 MG/DL 1.6-2.3 09/08/2016 6:26pm 09/08/2016 6:44pm Thyroid Stimulating Hormone (TSH) 1.65 MIU/L 0.47-4.68 09/08/2016 6: 26pm 09/08/2016 7:14pm Procedures Procedure Status Date Provider(s) Breast tomosynthesis bi Completed 07/14/16 [id number]"SCREENING MAMMOGRAPHY, PRODUCING DIRECT DIGITAL IMAGE Completed Encounters Encounter Location Arrival/Admit Date Discharge/Depart Date Attending Provider Departed [facility] 09/08/16 5:51pm 09/09/16 4: 13pm TIFFANY SANDOVAL MD Registered Clinic [facility] 07/14/16 10:22am BEULAH DAO
== END 2016-09-09 16:13 | disposition home or self-care (01) ==
LOC: CATH 17:51 → UNDOADMOB 17:51 → SRG 17:51 → CATH 09-09 16:13 → UNDODISOB 09-09 16:13 → EDSTATUS 09-10 14:02
PROVIDERS: ATTEND Internal Medicine Cardiovascular Disease
DX: Q24.5 Malformation of coronary vessels (principal); I77.89 Other specified disorders of arteries and arterioles; I20.0 Unstable angina; R07.2 Precordial pain; E78.2 Mixed hyperlipidemia; Z86.73 Personal history of transient ischemic attack (TIA), and cerebral infarction without residual deficits; Z82.49 Family history of ischemic heart disease and other diseases of the circulatory system; I36.1 Nonrheumatic tricuspid (valve) insufficiency; I37.1 Nonrheumatic pulmonary valve insufficiency
CPT/HCPCS: 36415; 80053; 80061; 83735; 84443; 84484; 85025; 85379; 93005; 93306; 93458; 96360; 96361; 99218; C1893; J1644; J2250; J2405; J3010; J3490; J7030; Q9967